=== PATIENT | male | born 2005 | race Caucasian/White ===

== ENCOUNTER 2024-06-25 13:24 | Emergency (ER) | payer OTHER, SELFPAY ==
[2024-06-25 13:34] VITALS: BP 151/90; PULSE 95; RESP 20; TEMP 36.2; O2SAT 100
--- NOTE | 2024-06-25 13:40 | ED.URI ---
HPI - URI/Sore Throat General Chief Complaint: Upper Respiratory Infection Stated Complaint: Sore Throat/Nasal Congestoin/Chest Pain History of Present Illness HPI Narrative: patient is a 18-year-old male, presents to [facility] with 4 day history of URI symptoms, including nasal congestion, sore throat, rhinorrhea and a slight dry cough. He reports some burning in his chest when he breathes. He has no known sick contacts, no fevers or chills, no orthopnea or calf swelling. He is not taking any mlco-bue-vqqdzsg medications for symptom relief. He is requesting a work note today. His immunizations are up-to-date. Related Data Allergies Allergy/AdvReac Type Severity Reaction Status Date / Time No Known Allergies Allergy Verified 06/25/24 13:41 Review of Systems ENT: Comments: Refer to HPI Respiratory: Comments: refer to HPI Exam Const: General: healthy appearing Nutritional Appearance: obese Orientation/consciousness: patient oriented x3 Limitations: no limitations HENMT: Head: normal to inspection Face/Nose/Sinus: Normal external nose present Face and sinus: normal facial exam Mouth: Yes Normal oral and palatal mucosa present Throat: posterior oropharynx normal ( Tonsils are 2+ bilaterally, no exudate, no erythema) and uvula midline Eyes: Conjunctivae: conjunctivae normal Pupils: Equal, round and reactive pupils present EOM: EOMs intact bilaterally Direct Ophthalmoscopy: no photophobia Neck: Neck: normal visual inspection, no lymphadenopathy and no meningeal signs Chest: Chest palpation & inspection: normal inspection of the chest Resp: Effort & Inspection: normal respiratory effort Auscultation: clear to auscultation bilaterally Cardio: Rate: regular rate GI: Other: soft, nontender, nondistended Back/Spine/Pelvis: Back: no CVA tenderness Skin: General skin exam: normal color Rashes: no rashes Wounds: no wounds Neuro: General: patient oriented x3, moves all extremities, no meningeal signs, no focal motor deficits and CN's II-XI intact bilaterally Cranial nerves: Yes Nystagmus not present Speech: normal speech Gait exam (Neuro): Normal gait present Extrem: General: normal to inspection Psych: Mental Status: mental status grossly normal Affect: normal affect Attitude: cooperative Course Course Emergency Course: rapid strep is negative, will reflex for culture. Plan to treat for viral URI/bronchitis, oral steroids and promethazine DM, push fluids and rest. Patient is agreeable plan Level of Care: Express Care Visit ([id number]) Vital Signs Vital signs: Vital Signs Temperature 36.2 C L 06/25/24 13:34 Pulse Rate 95 06/25/24 13:34 Respiratory Rate 20 06/25/24 13:34 Blood Pressure 151/90 H 06/25/24 13:34 Pulse Oximetry 100 06/25/24 13:34 Oxygen Delivery Room Air 06/25/24 13:34 Temperature 36.2 C L 06/25/24 13:34 Pulse Rate 95 06/25/24 13:34 Respiratory Rate 20 06/25/24 13:34 Blood Pressure 151/90 H 06/25/24 13:34 Pulse Oximetry 100 06/25/24 13:34 Oxygen Delivery Room Air 06/25/24 13:34 MDM - URI/Sore Throat MDM Narrative Medical decision making narrative: prednisone daily for 5 days, promethazine DM p.r.n., push fluids, rest, follow-up with PCP in 3-5 days if symptoms not resolving. Lab Data Labs: Lab Results 06/25/24 Range/Units 13:46 POC Grp A Strep Screen Negative (Negative) Discharge Plan Discharge Clinical Impression: Upper respiratory infection Qualifiers: URI type: unspecified URI Qualified Code(s): J06.9 - Acute upper respiratory infection, unspecified Patient Disposition: Home Condition: Stable Instructions: Antibiotic Form, Upper Respiratory Infection (ED) Additional Instructions: REST, PUSH FLUIDS, COMPLETE ORAL STEROIDS PRESCRIBED, COUGH SUPPRESSANT DIRECTED. FOLLOW UP WITH YOUR PRIMARY DOCTOR IF SYMPTOMS NOT IMPROVING IN 3-5 DAYS AND TO ALSO REPEAT BLOOD PRESSURE YOUR READINGS TODAY ARE ELEVATED AND SHOULD BE RECHECKED WHEN YOU ARE FEELING BETTER Patient Language: Citizen Of [place] Prescriptions: New prednisone 20 mg tablet 40 mg PO DAILY 5 Days Qty: 10 0RF promethazine-DM 6.25-15 mg/5 mL syrup 5 ml PO Q4-6H PRN (Reason: cough) Qty: 118 0RF Follow-up/Referrals: PHYSICIAN,FRONT OFFICE ASSOCIATE [Primary Care Provider] - Stand Alone Forms: Work/School Release IP Time of Disposition: 14:05
[2024-06-25 13:48] LABS: EDSTREPNEGPOS1 Negative (Negative)
--- OUTSIDE RECORDS SUMMARY | 2024-06-25 15:09 | XMS_ITS | Clinical Summary ---
Author Organization [facility] Care Team Providers Care Erp Analyst Name Role Phone No, Physician Primary Care Provider [phone] Allergies No known active allergies Medications ondansetron (ZOFRAN) 4 mg tablet Take 1 tablet (4 mg total) by mouth every 6 (six) hours 12 tablet 03/03/2024 Active Social History Tobacco Use Types Packs/Day Years Used Date Smoking Tobacco: Never Assessed Personal Safety Answer Date Recorded Have you ever been in or are you currently in a harmful physical or emotional relationship or is someone making you feel afraid or unsafe? Denies 03/03/2024 Sex and Gender Information Value Date Recorded Sex Assigned at Not on file Legal Sex Male 6:36 AM CDT Gender Identity Not on file Sexual Orientation Not on file Growth Chart Information Age Height Weight Tchpey-zbi-bmhr th Percentile BMI Percentile Head Circum Head Circum Percentile Date 18 years 112.5 kg (248 lb) 2023 Last Filed Vital Signs Vital Sign Reading Time Taken Comments Blood Pressure 155/84 03/03/2024 1:00 PM HOUSING RELOCATION Pulse 78 03/03/2024 1:15 PM HOUSING RELOCATION Temperature 36.1 C (96.9 F) 03/03/2024 11:10 AM HOUSING RELOCATION Respiratory Rate 16 03/03/2024 11:10 AM HOUSING RELOCATION Oxygen Saturation 96% 03/03/2024 1:15 PM HOUSING RELOCATION Inhaled Oxygen Concentration - - Weight 112.5 kg (248 lb) 03/03/2024 11:10 AM HOUSING RELOCATION Height - - Body Mass Index - - Plan of Treatment Health Maintenance Due Date Last Done Comments Depression Screening 2004 Hepatitis C Screening 2004 DTaP/Tdap/Td Vaccine (1 - Tdap) 09/15/2015 Varicella Vaccines (1 of 2 - 13+ 2-dose series) 2017 HPV Vaccines (1 - Male 3-dos e series) 09/15/2019 Meningococcal B Vaccine (1 o f 2 - Standard) 2020 Regular Well Visit/Exam 18-64 2022 Influenza Vaccine (#1) 2023 Hepatitis B Screening Completed 2004 Meningococcal Vaccine Aged Out No soren amy eligible based on patient's age to complete this topic Pneumococcal vaccine <65 Aged Out No longer eligible based on patient's age to complete this topic Insurance [facility] Care Teams Erp Analyst Relationship Specialty Start Date End Date No, Physician PCP - General 03/03/24
--- OUTSIDE RECORDS SUMMARY | 2024-06-25 15:09 | XMS_ITS | Continuity of Care Document ---
[facility] Address [address] [place] [address] Phone Care Team Providers Care Plate And Frame Filter Operator Name Role Phone Nelson LEERachael Unavailable Unavailable Allergies, Adverse Reactions, Alerts Substance Reaction Status Criticality No Known Allergies Active No Inform ation Procedures Procedure Date OFFICE/OUTPATIENT VISIT, [facility] Results Test Name Date and Time Measure Units Reference Range Abnormal Flag Status Commen ts Panel Description: RAPID STREP Final RAPID STREP 11:28:00 NEGATIVE NORMAL - NEGATIVE Final Advance Directives Directive Yes / No Effective Date File Name No Information Encounters Encounter Description Practice Location Reason(s) For Visit Diagnoses Date Provider Providers Copied on Encounter OFFICE/OUTPAT IENT VISIT, [facility], [address] [place] [address], [facility], tel:[phone] [place] pain under/back of tongue (chief complaint) Sore throat Nelson Rachael. [address] [place] [address], [facility], . tel:[phone] Family History Family Member Type Diagnosis Age At Onset No Information Payers Payer name Insurance type Covered green party ID Authoriza tion(s) No Information Social History Type Description Quantity Date Captured Comments Alcohol Use Details Unknown Caffeine Use Details Unknown Tobacco Use Status Current non-smoker 18 Smoking Status Never smoker Non-Smoking Tobacco Use Details : No Details Available : No Details Available Sex Male Vital Signs Date / Time: Height Weight BMI Pulse Rate Blood Pressure Temperature Respiratory Rate Body Surface Area Head Circumference Head Circ. Percentile Wt./Steve. Percentile BMI percentile Pulse Ox Inhaled Ox 7:50 AM 68.00 in 92.805 kg (204.60 lbs) 31.1 1 kg/m eter (2) 75 /min 130/70 mm[Hg] 97.90 F 98 98 % 21 % Chief Complaint And Reason For Visit From encounter dated '11/26/2018 07:47'. pain under/back of tongue (chief complaint). Description: The symptoms began 3 days ago. Aggravating factors include TALKING AND EATING. STARTED ON MONDAY. NOT TRIGGERED BY ANYTHING THAT PT KNOWS OF Reason For Referral Reason For Referral No Information Plan Of Treatment Date Type Action Status Goal Influenza vaccine. Due on due Goal Tdap. Due on due Goal Depression screening. Due on due Goal HPV (). Due on 9 due Goal Fluoride varnish application . Due on due History Of Present Illness Encounter Date Complaint History Of Prese nt Illness pain under/back of tongue The sy mptoms began 3 days ago. Aggravating factors include TALKING AND EATING. STARTED ON MONDAY. NOT TRIGGERED BY ANYTHING THAT PT KNOWS OF Functional Status Date Functional Assessmen t No Information Instructions Date Instruction Additional Infor mation Over the counter med ication for symptoms. Return for fever or worsening symptoms or if not resolved in a week to 10 days. Related to Sore throat Recommend gargling with warm akbar t water Related to Sore throat Increase fluids, dri nking warm tea with honey may help, throat lozenges Related to Sore throat Assessments Type Assessment Date assessment Sore throat Mental Status Date Cognitive Assessment Orientation - [place] ed to time, place, person, situation. Patient Care Teams Name Effective Dates (start - stop) Status Members No Information
--- OUTSIDE RECORDS SUMMARY | 2024-06-25 15:09 | XMS_ITS | Referral Summary ---
Author Organization [facility] Care Team Providers Care Pot Press Operator Name Role Phone No, Physician Primary Care Provider [phone] Allergies No known active allergies Medications ondansetron [...] on file Sexual Orientation Not on file Last Filed Vital Signs Vital Sign Reading Time Taken Comments Blood Pressure 155/84 03/03/2024 1:00 PM TECHNICAL SALES MANAGER Pulse 78 03/03/2024 1:15 PM TECHNICAL SALES MANAGER Temperature 36.1 C (96.9 F) 03/03/2024 11:10 AM TECHNICAL SALES MANAGER Respiratory Rate 16 03/03/2024 11:10 AM TECHNICAL SALES MANAGER Oxygen Saturation 96% 03/03/2024 1:15 PM TECHNICAL SALES MANAGER Inhaled Oxygen Concentration - - Weight 112.5 kg (248 lb) 03/03/2024 11:10 AM TECHNICAL SALES MANAGER Height - - Body Mass Index - - Plan of Treatment Not on file Insurance [id number] [place] [id number] [facility] [place] Care Teams Pot Press Operator Relationship Specialty Start Date End Date No, Physician PCP - General 03/03/24
--- OUTSIDE RECORDS SUMMARY | 2024-06-25 15:16 | XMS_ITS | Continuity of Care Document ---
Author Organization [facility] Address [address] [place] [address] Phone Care Team Providers Care Tuckpointer Name Role Phone Nelson LEERachael Unavailable Unavailable Allergies, Adverse Reactions, Alerts Substance Reaction Status Criticality No Known Allergies Active No Inform ation Procedures Procedure Date OFFICE/OUTPATIENT VISIT, [facility] Results Test Name Date and Time Measure Units Reference Range Abnormal Flag Status Commen ts Panel Description: RAPID STREP Final RAPID STREP 11:28:00 NEGATIVE NORMAL - NEGATIVE Final Advance Directives Directive Yes / No Effective Date File Name No Information Encounters Encounter Description Practice Location Reason(s) For Visit Diagnoses Date Provider Providers Copied on Encounter OFFICE/OUTPAT IENT VISIT, [facility], [address] [place] [address], [facility] [place], tel:[phone] [place] pain under/back of tongue (chief complaint) Sore throat Nelson Rachael. [address] [place] [address], [facility] [place], . tel:[phone] Family History Family Member Type Diagnosis Age [...] Of Treatment Date Type Action Status Goal Fluoride varnish application . Due on due Goal Influenza vaccine. Due on due Goal Tdap. Due on due Goal Depression screening. Due on due Goal HPV (). Due on 9 due History Of Present Illness Encounter Date [...] Mental Status Date Cognitive Assessment Orientation - [place] ed to time, place, person, situation. Patient Care Teams Name Effective Dates (start - stop) Status Members No Information
== END 2024-06-25 14:13 | disposition home or self-care (01) ==
PROVIDERS: Emergency Provider Nurse Practitioner Family
DX: J06.9 Acute upper respiratory infection, unspecified (principal)
CPT/HCPCS: 87081; 87880; 99213; G0463

== ENCOUNTER 2024-08-24 15:00 | Emergency (ER) | payer BC, OTHER, SELFPAY ==
[2024-08-24 15:09] VITALS: BP 153/86; PULSE 94; RESP 16; TEMP 36.9; O2SAT 99
[2024-08-24] MEDS: methylPREDNISolone SOD SUCC 125 MG VIAL IM (16:02)
--- NOTE | 2024-08-24 16:17 | ED_ITS ---
HPI - Skin/Abscess/Foreign Bdy General Chief complaint: Skin/Abscess/Foreign Body Stated complaint: Eye Swelling/Rash Time Seen by Provider: 08/24/24 15:40 Source: patient and RN notes reviewed Mode of arrival: ambulatory Limitations: no limitations History of Present Illness HPI narrative: 18-year-old male presents Express Care complaining of body rash and eyelid swelling for proximally 1 week. 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 Since then the rash is not gotten better. Patient said approximately 3 days ago he developed bilateral eyelid swelling. Patient denies any eye pain, eye redness, discharge, vision changes, swelling to the face, lips, tongue, difficulty breathing, wheezing, or any other symptoms. Has tried Benadryl qrpp-keo-ihlrdam help with symptoms without relief. Related Data Allergies Allergy/AdvReac Type Severity Reaction Status Date / Time No Known Allergies Allergy Verified 08/24/24 15:26 Review of Systems Review of Systems: CONSTITUTIONAL: Denies fever, chills, or sweats. EYES: Denies visual changes, eye pain, redness, or discharge. Positive for bilateral eyelid swelling. ENT: Denies rhinorrhea, congestion, sore throat, or otalgia. CARDIOVASCULAR: Denies chest pain, palpitations, or edema. RESPIRATORY: Denies cough or dyspnea. GASTROINTESTINAL: Denies abdominal pain, nausea, vomiting, or diarrhea. GENITOURINARY: Denies dysuria or hematuria. SKIN: Positive for rash and itching. MUSCULOSKELETAL: Denies back pain, joint pain, or myalgia. NEUROLOGIC: Denies headache, numbness, or weakness. PSYCHIATRIC: Denies anxiety or depression. All other systems reviewed are negative, except as documented in HPI. PMFSH Comments At the time of my signature, I reviewed and agree with the nursing past medical, surgical, social, and family history. There is no relevant family history pertinent to the patient complaint. Exam Narrative: GENERAL: This is a well-nourished, well-developed adult, in no apparent distress. They are non ill-appearing, nontoxic appearing. HEAD: normocephalic, atraumatic. EYES: Sclera clear/white. Conjunctiva normal. Vision is grossly intact. Extraocular movements intact. Pupils PERRLA. Bilateral upper and lower eyelids are edematous without erythema or pain. EARS: External ears normal, auditory canals clear and without drainage, TMs normal without perforation. Hearing grossly intact. NOSE: External nose normal THROAT: Mucous membranes moist, NECK: Neck supple, . CARDIOVASCULAR: Regular rate and rhythm RESPIRATORY: Respiratory rate normal, respiratory effort nonlabored, no respiratory distress SKIN: There is a erythematous papular, vesicular rash scattered throughout the patient's by arms, legs, trunk. No rash on the face. Rashes nontender, no induration, no area of fluctuance, no exudate. NEURO: awake, alert, and oriented to person, place and time. There were no obvious focal neurologic abnormalities. EXTREMITIES: No joint tenderness, effusion, or edema noted. BACK: Nontender without deformity. Course Course Emergency Course: Portions of this record may have been created with voice recognition software Level of Care: Express Care Visit Vital Signs Vital signs: Vital Signs Temperature 98.5 F 08/24/24 15:09 Pulse Rate 94 08/24/24 15:09 Respiratory Rate 16 08/24/24 15:09 Blood Pressure 153/86 H 08/24/24 15:09 Pulse Oximetry 99 08/24/24 15:09 Oxygen Delivery Room Air 08/24/24 15:09 Temperature 98.5 F 08/24/24 15:09 Pulse Rate 94 08/24/24 15:09 Respiratory Rate 16 08/24/24 15:09 Blood Pressure 153/86 H 08/24/24 15:09 Pulse Oximetry 99 08/24/24 15:09 Oxygen Delivery Room Air 08/24/24 15:09 Reviewed MDM - Skin/Abscess/Foreign Bdy MDM Narrative Medical decision making narrative: Patient likely has allergic dermatitis related to poison staci given that he has bilateral eyelid swelling. Patient given shot of Solu-Medrol. Will prescribe prednisone taper starting tomorrow. Discussed physical exam findings. Advised supportive measures and signs/symptoms to go to the ER. Pt is appropriate for outpt treatment and f/u. Differential Diagnosis Differential diagnosis: Likely viral exanthem, cellulitis, contact dermatitis and other (Allergic dermatitis, allergic reaction) Critical Care Time Critical Care Time Critical Care Time: No Discharge Plan Discharge Clinical Impression: Poison staci Swelling of eyelid Qualifiers: Laterality: unspecified laterality Qualified Code(s): H02.849 - Edema of unspecified eye, unspecified eyelid Patient Disposition: Home Condition: Stable Instructions: Contact Dermatitis (ED), Poison Staci (ED) Additional Instructions: You were given dose of Solu-Medrol today help with a rash and swelling. Take the prednisone as directed. Start the prednisone tomorrow. Take it in the morning and take it with food. You may use fagg-uir-pgsbbzn Tecnu soap as directed on the bottle to help remove the oils from poison staci off your skin. You may use calamine lotion, camphor, hydrocortisone cream Benadryl cream as needed for itchiness symptoms. You may also take Zyrtec or Claritin as needed for allergy or itchiness symptoms. Follow-up PCP in 3-5 days. If you develop any worsening redness, swelling, discharge, fevers, breathing problems, or any other concerns please go to the ER immediately. Patient Language: Swedish Prescriptions: New prednisone 10 mg tablet See Taper PO DIRECTED Qty: 42 0RF Taper: Prednisone Taper from 60 mg;12 days 60 mg DAILY for 2 Days and 0 Hour 50 mg DAILY for 2 Days and 0 Hour 40 mg DAILY for 2 Days and 0 Hour 30 mg DAILY for 2 Days and 0 Hour 20 mg DAILY for 2 Days and 0 Hour 10 mg DAILY for 2 Days and 0 Hour Rx Instructions: see taper instructions Follow-up/Referrals: PHYSICIAN,ELECTRICAL SUPERVISOR [Primary Care Provider] - Time of Disposition: 15:47
== END 2024-08-24 16:20 | disposition home or self-care (01) ==
DX: L23.7 Allergic contact dermatitis due to plants, except food (principal); H02.844 Edema of left upper eyelid; H02.845 Edema of left lower eyelid; H02.841 Edema of right upper eyelid; H02.842 Edema of right lower eyelid
CPT/HCPCS: 96372; 99213; G0463; J2919

== ENCOUNTER 2025-02-12 16:13 | Emergency (ER) | payer BC, SELFPAY ==
[2025-02-12 16:18] VITALS: BP 156/93; PULSE 99; RESP 16; TEMP 37.2; O2SAT 99
--- NOTE | 2025-02-12 16:37 | ED.HA ---
HPI - Headache General Chief Complaint: Upper Respiratory Infection Stated Complaint: Headache/Vomting Time Seen by Provider: 02/12/25 16:37 Source: patient, RN notes reviewed and old records reviewed Mode of arrival: ambulatory Limitations: no limitations History of Present Illness HPI Narrative: 19-year-old male presents to [facility] with complaints of headache, vomiting, diarrhea, sore throat with some upset stomach since Monday. Patient reports that his girlfriend does have strep throat at this time. Patient reports that he has eaten and draank fluids today and has not taken any OTC medications for his symptoms. Patient reports that frontal headache is really bad today rates it 10/13 MD elicited complaint: headache and other (sore throat, headache and vomiting) Onset (ago): day(s) (day 3 of symptoms) Pain scale (0-10): 8 Treatments prior to arrival: none Related Data Allergies Allergy/AdvReac Type Severity Reaction Status Date / Time No Known Allergies Allergy Verified 02/12/25 16:31 Review of Systems Review of Systems: CONSTITUTIONAL: reports malaise, chills, sweats, or fever. EYES: Denies visual changes, redness, or discharge. ENT: Reports rhinorrhea, congestion, sinus pain,no otalgia and +sore throat. CARDIOVASCULAR: Denies chest pain, palpitations, or edema. RESPIRATORY: Reports no cough.? Denies dyspnea. GASTROINTESTINAL: reports upset stomach, no abdominal pain, + nausea, vomiting, and diarrhea SKIN: Denies rash or itching. MUSCULOSKELETAL: Denies myalgia. NEUROLOGIC: reports headache. All systems reviewed & are unremarkable except as noted in HPI and below PMFSH Past Medical History Medical History (Updated 02/13/25 @ 12:34 by Gill Felix APRN) Acute pharyngitis Social History Social History Smoking status: Never smoker Alcohol intake: unknown Substance use type: does not use Living arrangements: with family Gender identity (if verbalized by the patient): Male Comments At time of signature, agree with nursing past medical, surgical, social and family history. There is no relevant family history pertinent to the presenting complaint Exam Narrative: GENERAL: Well-appearing, well-nourished, and in no acute distress. HEAD: Normocephalic EYES: PERRLA, conjunctivae clear ENT: Nares clear, turbinates edematous and erythematous, clear discharge, frontal headache pain. Mucous membranes moist. TM pearly zaman with dull light reflex bilaterally; no tragal tenderness. Oropharynx erythematous without lesions. Tonsils red and enlarged and without exudate, no drooling, no hoarseness, no trismus, uvula midline.some post nasal drainage NECK: Supple. lymphadenopathy CHEST: Clear to auscultation, breath sounds equal. No wheezing, rhonchi, rales, or stridor. No respiratory distress, speaks in full sentences.no cough noted SAO2 99% on room air HEART: Regular rate and rhythm. No murmur heard. SKIN: Warm, dry, no rash. NEURO: Alert and oriented x3. PSYCH: Normal mood and affect Course Course Level of Care: Express Care Visit Vital Signs Vital signs: Vital Signs Temperature 37.2 C 02/12/25 16:18 Pulse Rate 99 02/12/25 16:18 Respiratory Rate 16 02/12/25 16:18 Blood Pressure 156/93 H 02/12/25 16:18 Pulse Oximetry 99 02/12/25 16:18 Oxygen Delivery Room Air 02/12/25 16:18 Temperature 37.2 C 02/12/25 16:18 Pulse Rate 99 02/12/25 16:18 Respiratory Rate 16 02/12/25 16:18 Blood Pressure 156/93 H 02/12/25 16:18 Pulse Oximetry 99 02/12/25 16:18 Oxygen Delivery Room Air 02/12/25 16:18 reviewed MDM MDM Narrative Medical decision making narrative: Patient tested positive for strep throat will treat with oral antibiotic and recommendations of symptoms control [facility] for fever and pain. Patient is approprate for express care visit and reviewed reasons to seek care in ED with understanding voiced Differential Diagnosis Differential Diagnosis: Differential diagnostic considerations for upper respiratory infection include upper respiratory infection, croup, otitis media, sinusitis, viral infection, bronchitis, influenza, pharyngitis, strep, uvulitis.? Lab Data Labs: Lab Results 02/12/25 Range/Units 16:46 POC Grp A Strep Screen Positive (Negative) reviewed Critical Care Time Critical Care Time Critical Care Time: No Discharge Plan Discharge Clinical Impression: Acute streptococcal pharyngitis Patient Disposition: Home Condition: Stable Instructions: Antibiotic Form, Strep Throat (ED) Additional Instructions: You tested positive for Group A strep . Take the entire course of antibiotics. Throw away your current toothbrush and begin using a new toothbrush in 48 hours in order to prevent re-infection. Sanitize all reusable water bottles . Do not share items with others. Salt water gargles may alleviate some of the throat discomfort. You can take Tylenol or ibuprofen per the package instructions for pain/fever. If your symptoms persist, change or worsen significantly before you can contact your personal physician then please, without delay, go to the emergency department for further evaluation. Follow-up with PCP in 7-10 days or sooner if needed Follow up with PCP soon in regards to your blood pressure which is elevated above threshold for referral. Blood pressure above 120/80 may indicate pre-hypertension. Patient Language: Barbadian Prescriptions: New amoxicillin 500 mg capsule 1,000 mg PO Q12H 10 Days Qty: 40 0RF Rx Instructions: take ALL of the prescription Follow-up/Referrals: PHYSICIAN,NUTRITION EDUCATOR [Primary Care Provider, Internal Medicine] Stand Alone Forms: Work/School Release IP Time of Disposition: 16:45 Quality [place] Coma Scale Eyes: Open Verbal: Oriented and Alert Motor: Follows Commands [place] Coma Total Score: 15
[2025-02-12 16:48] LABS: EDSTREPNEGPOS1 Positive (Negative)
--- OUTSIDE RECORDS SUMMARY | 2025-02-12 20:55 | XMS_ITS | Clinical Summary ---
Author Organization [facility] Care Team Providers Care Road Production General Manager Name Role Phone No, Physician Primary Care Provider Allergies No known active allergies Medications ondansetron [...] Comments Blood Pressure 155/84 03/03/2024 1:00 PM RACQUET MAKER Pulse 78 03/03/2024 1:15 PM RACQUET MAKER Temperature 36.1 C (96.9 F) 03/03/2024 11:10 AM RACQUET MAKER Respiratory Rate 16 03/03/2024 11:10 AM RACQUET MAKER Oxygen Saturation 96% 03/03/2024 1:15 PM RACQUET MAKER Inhaled Oxygen Concentration - - Weight 112.5 kg (248 lb) 03/03/2024 11:10 AM RACQUET MAKER Height - - Body Mass Index - [...] Well Visit/Exam 18-64 2022 Influenza Vaccine (#1) 2024 Hepatitis B Screening Completed 2004 Meningococcal Vaccine Aged Out No soren amy eligible based on patient's age to complete this topic Pneumococcal vaccine <65 Aged Out No longer eligible based on patient's age to complete this topic Insurance [facility] Care Teams Road Production General Manager Relationship Specialty Start Date End Date No, Physician PCP - General 03/03/24
== END 2025-02-12 16:50 | disposition home or self-care (01) ==
PROVIDERS: Emergency Provider Registered Nurse
DX: J02.0 Streptococcal pharyngitis (principal)
CPT/HCPCS: 87880; 99213; G0463